=== PATIENT | female | born 1955 | race Caucasian/White ===

== ENCOUNTER → 2020-09-29 09:13 | Outpatient (CLI) | payer OTHER, SELFPAY ==
--- NOTE | 2020-09-29 | DI.RAD.S_ITS ---
PROCEDURE: XR FOOT RT MIN 3V INDICATIONS: PAIN IN ANKLE JOINTS OF FOOT TECHNIQUE: 3 views of the foot were acquired. COMPARISON: None. FINDINGS: Bones: No fractures or dislocations. No suspicious bony lesions. Mild hallux valgus metatarsus prima varus alignment and medial bunion. Mild 1st MTP joint space narrowing with periarticular osteophytosis. Soft tissues: No tibiotalar joint effusion. Achilles tendon appears normal. IMPRESSION: 1. Hallux valgus alignment and medial bunion. 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 Dictated by: Roman Alegria [facility] Interpreted: Shaquille Fajardo MD on 09/29/2020 at 10:28 Transcribed by: LILLIANA on 09/29/2020 at 10:29 Approved by: Shaquille Fajardo M.D. on 09/29/2020 at 15:41
--- NOTE | 2020-09-29 | DI.RAD.S_ITS ---
PROCEDURE: XR ANKLE RT MIN 3V INDICATIONS: PAIN IN ANKLE JOINTS OF FOOT TECHNIQUE: 3 views of the ankle were acquired. COMPARISON: [facility], CR, XR FOOT RT MIN 3V, 09/29/2020, 9:17. FINDINGS: Bones: No fractures or dislocations. Ankle mortise is normally aligned. No suspicious bony lesions. Soft tissues: No tibiotalar joint effusion. Achilles tendon appears normal. IMPRESSION: No trauma found. Source of current pain is not found. Dictated by: Shaquille Fajardo M.D. on 09/29/2020 at 11:37 Approved by: Shaquille Fajardo M.D. on 09/29/2020 at 11:38
== END ==
PROVIDERS: PCP Family Medicine; Referring Provider Family Medicine; Visit Provider Family Medicine
DX: M25.579 Pain in unspecified ankle and joints of unspecified foot (principal); M20.11 Hallux valgus (acquired), right foot; M21.611 Bunion of right foot; M19.071 Primary osteoarthritis, right ankle and foot
CPT/HCPCS: 73610; 73630

== ENCOUNTER 2023-05-10 09:06 | Emergency (ER) | payer MEDICARE, OTHER, SELFPAY ==
[2023-05-10 09:10] VITALS: BP 138/79; PULSE 72; RESP 18; TEMP 36.6; O2SAT 100; BMI 24.6
--- NOTE | 2023-05-10 11:12 | PC.NURSE ---
Pt was eating a chicken drumstick yesterday, took a bite, and swallowed. She felt like a bone got lodged in her throat on her left side. She is smiling and laughs when talking, does not appear in distress, denies SOB or difficulty breathing. She reports heart burn at a 1/10 pain which she occasionally gets.
--- NOTE | 2023-05-10 11:15 | ED.GENADULT ---
HPI - General Adult <Radha Aguirre PA-C - Last Filed: 05/10/23 12:38> General Chief complaint: Skin/Abscess/Foreign Body Stated complaint: Chicken bone stuck in her throat Time Seen by Provider: 05/10/23 11:08 Source: patient and family Mode of arrival: Ambulatory History of Present Illness HPI narrative: 67 yo female presents with sensation of chicken bone on LEFT side of throat. Had homemade chicken drumstick last night, and felt a small piece, possible bone get stuck. She points to the left anterior neck. Denies any choking, wheezing, drooling, bleeding or excessive mucus production. Managed to drink and eat following the episode (including marshmallows). Describes the discomfort as mainly achy and worse if she turns her head/neck to the left. At times she does feel sharp. She [place] davis [place] lodged, but dislodged by ENT during camera exam. At that time she did develop GERD afterwards and took medication. She no longer requires medication and it is diet controlled. This morning however, she feels a little acid irritation. Denies nausea, abdominal pain or other complaint. Admits to feeling a little anxious during last night's episode. All other systems reviewed and are negative. She resides on [facility]. Related Data Allergies Allergy/AdvReac Type Severity Reaction Status Date / Time penicillin G [PENICILLIN G] Allergy Unknown childhood Verified 05/10/23 09:30 Review of Systems <Radha Aguirre PA-C - Last Filed: 05/10/23 12:38> Review of Systems Narrative: SEE HPI. All other systems reviewed and are negative. Patient History <Radha Aguirre PA-C - Last Filed: 05/10/23 12:38> alcohol intake frequency: 0-2 drinks per day Alcohol type: wine Substance Use Type: does not use Exam <MILLY Lowery Last Filed: 05/10/23 12:38> Initial Vital Signs Initial Vital Signs: Vital Signs Temperature 97.8 F 05/10/23 09:10 Pulse Rate 72 05/10/23 09:10 Respiratory Rate 18 05/10/23 09:10 Blood Pressure 138/79 05/10/23 09:10 Pulse Oximetry 100 05/10/23 09:10 Oxygen Delivery Method Room Air 05/10/23 09:10 Vital signs reviewed and are normal except for slightly elevated systolic reading. Const General: cooperative, healthy appearing, comfortable, well developed, well groomed, No acute distress, No in distress, No anxious, No ill appearing and well hydrated Other: Able to speak clearly, no audible hoarseness or wheezing. Work of breathing is normal. [facility] Head: normal to inspection, normocephalic and atraumatic Nose: external nose normal, nares normal and nasal mucous membranes and turbinates normal Face and sinus: normal facial exam and sinuses nontender Mouth: oral mucosae normal, lip normal, tongue normal, salivary ducts normal, oropharynx normal, No audible dysphonia, No drooling, No malodorous breath, No mouth trauma and other (No bleeding points or excessive phlegm) Neck Neck: normal visual inspection, full ROM, trachea midline, supple, No anterior neck swelling and No lymphadenopathy Thyroid: thyroid normal, not diffusely enlarged, nontender and no warm Lymphatic: No lymphedema and No lymphadenopathy Resp Effort & Inspection: normal respiratory effort, able to speak in complete sentences, no audible wheezes, no cough and no stridor Auscultation: clear to auscultation bilaterally, no rales, no rhonchi and no wheezes Psych Mental Status: mental status grossly normal Affect: normal affect <DO Armando Davis Last Filed: 05/11/23 13:41> Initial Vital Signs Initial Vital Signs: Vital Signs Temperature 97.8 F 05/10/23 09:10 Pulse Rate 72 05/10/23 09:10 Respiratory Rate 18 05/10/23 09:10 Blood Pressure 138/79 05/10/23 09:10 Pulse Oximetry 100 05/10/23 09:10 Oxygen Delivery Method Room Air 05/10/23 09:10 Course <Radha Aguirre PA-C - Last Filed: 05/10/23 12:38> Orders Ordered: ED Orders 05/10/23 11:23 XR soft tissue neck Stat Vital Signs Vital signs: Vital Signs - 8 hr 05/10/23 09:10 05/10/23 11:22 Temperature 97.8 F 97.6 F Pulse Rate 72 67 Respiratory Rate 18 Blood Pressure 138/79 128/79 Pulse Oximetry 100 100 Oxygen Delivery Method Room Air Room Air <DO Armando Davis Last Filed: 05/11/23 13:41> Orders Ordered: ED Orders 05/10/23 11:23 XR soft tissue neck Stat Vital Signs Vital signs: Vital Signs - 8 hr 05/10/23 09:10 05/10/23 11:22 Temperature 97.8 F 97.6 F Pulse Rate 72 67 Respiratory Rate 18 Blood Pressure 138/79 128/79 Pulse Oximetry 100 100 Oxygen Delivery Method Room Air Room Air Medical Decision Making <Radha Aguirre PA-C - Last Filed: 05/10/23 12:38> Imaging Data XR soft tissue neck: My Impression: Agree with Radiologist's interpretation. Radiologist's Impression: PROCEDURE: XR SOFT TISSUE NECK INDICATIONS: chicken bone sensation left neck/throat TECHNIQUE: 2 views of the neck were acquired. COMPARISON: None. FINDINGS: Airway: The airway appears patent. Soft tissues: Prevertebral soft tissues are normal in thickness. The epiglottis and aryepiglottic folds appear normal. No soft tissue gas. Bones: No suspicious bony lesions. Visualized cervical spine is normally aligned. IMPRESSION: No acute process. Dictated by: Jah Robert M.D. on 05/10/2023 at 11:59 Approved by: Jah Robetr M.D. on 05/10/2023 at 12:00 [facility] Narrative Medical decision making narrative: XR soft tissue neck is negative. Discussed case with attending Dr. London. I managed to secure an appointment with Dr. Santos Moreno for 0715hrs tomorrow morning. Reviewed red flag warning signs with patient and her . Their plan is to spend the night in [place] rather than return to [place]. Differential included retained soft tissue FB not seen on XR, versus abrasion or small laceration. Discussed restarting a PPI such as omeprazole OTC but she declined. She declined further imaging such as CT scan. Discharge Plan Departure Patient Disposition: Home Clinical Impression: Globus sensation Instructions: DI for Foreign Body, Swallowed-Adult Activity Restrictions/Additional Instructions: I have secured an appointment for you with Dr. Santos Moreno, ENT [phone]. [address] [place] [id number]. Please call their office today to pre-register and provide your insurance information or if you would like to reschedule. Please avoid irritating foods, hydrate. Return to ED if symptoms worsen or you have other concerning symptoms. Referrals: Citlaly Camara MD [Primary Care Provider] - Stand Alone Forms: Patient Portal/API ED Sign-out <Joanna Londno DO - Last Filed: 05/11/23 13:41> Cosign ED Attending Miguel A Attestation: I was immediately available in the department for consultation. Case was discussed with myself patient has had no issues with swallowing eating or drinking since but has a sensation that a chicken bone is stuck in the throat. X-ray imaging shows no acute change. Consultation with ENT with plan to be seen and scope in the next 24 hours.
[2023-05-10 11:22] VITALS: BP 128/79; PULSE 67; TEMP 36.4; O2SAT 100
--- NOTE | 2023-05-10 11:23 | DI.RAD.S_ITS ---
PROCEDURE: XR SOFT TISSUE NECK INDICATIONS: chicken bone sensation left neck/throat TECHNIQUE: 2 views of the neck were acquired. COMPARISON: None. FINDINGS: Airway: The airway appears patent. Soft tissues: Prevertebral soft tissues are normal in thickness. The epiglottis and aryepiglottic folds appear normal. No soft tissue gas. Bones: No suspicious bony lesions. Visualized cervical spine is normally aligned. IMPRESSION: No acute process. Dictated by: Jah Robert M.D. on 05/10/2023 at 11:59 Approved by: Jah Robert M.D. on 05/10/2023 at 12:00
[2023-05-10 12:44] VITALS: PULSE 72; RESP 18; O2SAT 99
== END 2023-05-10 12:47 | disposition home or self-care (01) ==
PROVIDERS: Emergency Provider Physician Assistant Medical; PCP Family Medicine
DX: R09.A2 Foreign body sensation, throat (principal)
CPT/HCPCS: 70360; 99283

== ENCOUNTER → 2023-06-22 10:01 | Outpatient (CLI) | payer MEDICARE, OTHER, SELFPAY ==
--- NOTE | 2023-06-22 | DI.RAD.S_ITS ---
PROCEDURE: FL BARIUM SWALLOW W SPEECH INDICATIONS: Dysphagia, unspecified COMPARISON: None. TECHNIQUE: Examination was conducted in conjunction with speech pathology per standard protocol. In the lateral projection, filming was performed of the patient swallowing. AP projection filming may also be performed with patient swallowing. COMPARISON: FINDINGS: Function: The oral preparatory phase appears normal, with proper containment. The subsequent oral propulsive phase, pharyngeal phase, and esophageal phase of swallowing also appear normal with all proffered substances. No laryngotracheal penetration or aspiration. Mild vallecular and piriform sinus pooling. Mild retention of contrast in the esophagus which clears with water boluses. Morphology: No cricopharyngeal bar is identified. No cervical esophageal webs. No Zenker's diverticulum. No strictures. IMPRESSION: Vallecular and piriform sinus pooling. No diverticulum demonstrated. Please see separately dictated speech pathologist's report. Dictated by: Peter Lebron M.D. on 06/22/2023 at 12:12 Approved by: Peter Lebron M.D. on 06/22/2023 at 12:15
--- NOTE | 2023-06-22 13:29 | ST.SWALLOW ---
Addendum entered and electronically signed by Kj Curry 06/22/23 13:39: Information re: a different patient was entered into this pt's report in error Original Note: Visit Care Team Role Provider Type Citlaly Camara MD Primary Care Provider Physician Specialty: Family Practice Address: [address] [place] [address], [facility] [address], [address] Email: Santos Moreno MD Attending Provider Physician Referring Provider Specialty: Ear, Nose, Throat Address: [address] [place] [address], [id number] Email: [email or web address] Modified Barium Swallow Study ASSISTANT PRESS OPERATOR Modified Barium Swallow Study Start: 06/22/23 11:43 Freq: Status: Active Protocol: Document 06/22/23 11:44 LNK (Rec: 06/22/23 13:23 LNK [id number]) Modified Barium Swallow Study Total Time Visit Start Time 10:45 Visit Stop Time 11:15 Total Visit Minutes [address] Moreno, ENT Reason for Referral globus sensation with cough; dysphagia Setting Setting Outpatient Care Patient Information Identification Type Name,Date of Patient History pt was seen for a Modified Barium Swallow Study at the referral of Dr. Moreno. Dr. Moreno' exam noted difficulty visualizing the valeculla and pyriform sinuses, but could see the epiglottis. Pt reported that she has been to the ED x2 separate occasions with something stuck in her upper throat (left side); a davis pit and a fish bone. Both times, the object had dislodged itself after ~ 24 + hours, per pt report. Pt has PMH that included GERD. Pt recently had an EGD (06/02/2023)that indicated a small hernia. Pt noted that her esophagus was widened a little. Pt denied neck injury/surgery as well as any neurological diagnoses. Subjective Observations Pt was seated in the fluoroscopy chair with directions and procedures described for her. She indicated she understood and agreed to proceed. Patient Positioning Position View Lat-A/P Imaging Lateral View Textures Administered Trials Presented Thin Liquid via Spoon (IDDSI 0 ),Thin Liquid via Cup (IDDSI 0 ),Extremely Thick Liquid via Spoon (IDDSI 4),Regular (IDDSI 7) Barium Tablet Yes The IDDSI Framework Protocol: IDDSI.1 Oral Impairment Source: The Modified Barium Swallow Impairment Profile (MBSImP??) Lip Closure No labial escape Tongue Control During Bolus Hold Cohesive bolus between tongue to palatal seal Bolus Preparation/Mastication Timely & efficient chewing & mashing Bolus Transport/Lingual Motion Brisk tongue motion Oral Residue Trace residue lining oral structures Location Tongue Initiation of Pharyngeal Swallow Bolus head at posterior laryngeal surface of epiglottis Additional Oral Impairment Observations *OME, DKS and mastication observed to be WNL *Oral phase of swallow appeared WNL Pharyngeal Impairment Source: The Modified Barium Swallow Impairment Profile (MBSImP??) Soft Palate Elevation Trace column of contrast between soft palate & pharyngeal wall Laryngeal Elevation Comp.sup.move.thyroid cart.w/ comp.approx.arytenoids to epiglot petiole Anterior Hyoid Excursion Partial anterior movement Epiglottic Movement Partial inversion Laryngeal Vestibular Closure Complete; no air/contrast in laryngeal vestibule Pharyngeal Stripping Wave Present - diminished Pharyngoesophageal Segment Opening Partial distention/partial duration; partial obstruction of flow Tongue Base Retraction Wide column of contrast/air betwn tongue base & post. pharyngeal wall Pharyngeal Residue Collection of residue within/ on pharyngeal structures Location Diffuse (>3 areas) Additional Pharyngeal Impairment Pt's pharyngeal cavity Observations appeared to be narrow. Pt had small, curled epiglottis as well. Reduced tongue base strength, hyolaryngeal elevation and minimal posterior pharyngeal wall stripping was observed across trials. This resulted in minimal control of the bolus to the UES. Epiglottic inversion was inconsistent; however no laryngeal penetration or tracheal aspiration was observed. Valecullar pooling was consistently observed with pooling of contrast/secretions .Pooled secretions were also observed within the pyriform sinuses; left side greater that right side. This coincides wit pt's report of globus sensation/food items getting stuck as being high on the left side, not right. Base of tongue weakness and/or pharyngeal constrictors can result in inadequate force of the bolus propulsion resulting in retention of the bolus within valeculla/pyriform sinuses. The extension and duration of the UES opening was diminished secondary to cervical osteophytes altering the shape of the upper esophagus. Swallow therapy/base of tongue strengthening exercises are recommended. A/P View The IDDSI Framework Protocol: IDDSI.1 Clinical Impressions Dysphagia Type Pharyngeal Findings Pharyngeal dysphagia was noted . Base of tongue weakness and/ or pharyngeal constrictors can result in inadequate force of the bolus propusion resulting in retention of the bolus within valeculla/pyriform sinuses. Swallow therapy/base of tongue strengthening exercises are recommended. The results of the MBSS were described and discussed with the pt. Rehabilitation Potential Excellent Patient Appropriate for Therapy Yes Recommendations Diet Comments No diet change at this time Treatment Plan Therapy Recommendations Outpatient Speech Therapy,Base of Tongue Exercises
--- NOTE | 2023-06-22 13:46 | ST.SWALLOW ---
Visit Care Team Role Provider Type Citlaly Camara MD Primary Care Provider Physician Specialty: Family Practice Address: [address] [place] [address], [address], [place], [address] Email: Santos Moreno MD Attending Provider Physician Referring Provider Specialty: Ear, Nose, Throat Address: [address] [place] [address], [address] Email: [email or web address] Modified Barium Swallow Study ORACLE ERP ARCHITECT Modified Barium Swallow Study Start: 06/22/23 11:43 Freq: Status: Active Protocol: Document 06/22/23 11:44 LNK (Rec: 06/22/23 13:23 LNK [id number]) Modified Barium Swallow Study Total Time Visit Start Time 10:45 Visit Stop Time 11:15 Total Visit Minutes [address] Moreno, ENT Reason for Referral globus sensation with cough; dysphagia Setting Setting Outpatient Care Patient Information Identification Type Name,Date of Patient History pt was seen for a Modified Barium Swallow Study at the referral of Dr. Moreno. Dr. Moreno' exam noted difficulty visualizing the valeculla and pyriform sinuses, but could see the epiglottis. Pt reported that she has been to the ED x2 separate occasions with something stuck in her upper throat (left side); a davis pit and a fish bone. Both times, the object had dislodged itself after ~ 24 + hours, per pt report. Pt has PMH that included GERD. Pt denied neck injury/surgery as well as any neurological diagnoses. Subjective Observations Pt was seated in the fluoroscopy chair with directions and procedures described for her. She indicated she understood and agreed to proceed. Patient Positioning Position View Lat-A/P Imaging Lateral View Textures Administered Trials Presented Thin Liquid via Spoon (IDDSI 0 ),Thin Liquid via Cup (IDDSI 0 ),Extremely Thick Liquid via Spoon (IDDSI 4),Regular (IDDSI 7) Barium Tablet Yes The IDDSI Framework Protocol: IDDSI.1 Oral Impairment Source: The Modified Barium Swallow Impairment Profile (MBSImP??) Lip Closure No labial escape Tongue Control During Bolus Hold Cohesive bolus between tongue to palatal seal Bolus Preparation/Mastication Timely & efficient chewing & mashing Bolus Transport/Lingual Motion Brisk tongue motion Oral Residue Trace residue lining oral structures Location Tongue Initiation of Pharyngeal Swallow Bolus head at posterior laryngeal surface of epiglottis Additional Oral Impairment Observations *OME, DKS and mastication observed to be WNL *Oral phase of swallow appeared WNL Pharyngeal Impairment Source: The Modified Barium Swallow Impairment Profile (MBSImP??) Soft Palate Elevation Trace column of contrast between soft palate & pharyngeal wall Laryngeal Elevation Comp.sup.move.thyroid cart.w/ comp.approx.arytenoids to epiglot petiole Anterior Hyoid Excursion Partial anterior movement Epiglottic Movement Partial inversion Laryngeal Vestibular Closure Complete; no air/contrast in laryngeal vestibule Pharyngeal Stripping Wave Present - diminished Pharyngoesophageal Segment Opening Partial distention/partial duration; partial obstruction of flow Tongue Base Retraction Wide column of contrast/air betwn tongue base & post. pharyngeal wall Pharyngeal Residue Collection of residue within/ on pharyngeal structures Location Diffuse (>3 areas) Additional Pharyngeal Impairment Pt's pharyngeal cavity Observations appeared to be narrow. Pt had small, curled epiglottis as well. Reduced tongue base strength, hyolaryngeal elevation and minimal posterior pharyngeal wall stripping was observed across trials. This resulted in minimal control of the bolus to the UES. Epiglottic inversion was inconsistent; however not laryngeal penetration or tracheal aspiration was observed. Valecullar pooling was consistently observed with pooling of contrast/secretions .Pooled secretions were also observed within the pyriform sinuses; left side greater that right side. This coincides wit pt's report of globus sensation/food items getting stuck as being high on the left side, not right. Base of tongue weakness and/or pharyngeal constrictors can result in inadequate force of the bolus propulsion resulting in retention of the bolus within valeculla/pyriform sinuses. The extension and duration of the UES opening was diminished secondary to cervical osteophytes altering the shape of the upper esophagus. Swallow therapy/base of tongue strengthening exercises are recommended. A/P View The IDDSI Framework Protocol: IDDSI.1 Clinical Impressions Dysphagia Type Pharyngeal Findings Pharyngeal dysphagia was noted . Base of tongue weakness and/ or pharyngeal constrictors can result in inadequate force of the bolus propulsion resulting in retention of the bolus within valeculla/pyriform sinuses. Swallow therapy/base of tongue strengthening exercises are recommended. The results of the MBSS were described and discussed with the pt. Rehabilitation Potential Excellent Patient Appropriate for Therapy Yes Recommendations Diet Comments No diet change at this time Treatment Plan Therapy Recommendations Outpatient Speech Therapy,Base of Tongue Exercises
== END ==
LOC: RAD 10:02
PROVIDERS: PCP Family Medicine; Referring Provider Otolaryngology; Visit Provider Otolaryngology
DX: R13.10 Dysphagia, unspecified (principal); R09.A2 Foreign body sensation, throat; K21.9 Gastro-esophageal reflux disease without esophagitis
CPT/HCPCS: 74230; 92611